=== PATIENT | male | born 1970 | race Two or more races ===

== ENCOUNTER → 2017-05-05 | Outpatient (REF) | payer OTHER | LOC: M SFHCPLAZ 10:28 | PROVIDERS: ATTEND Nurse Practitioner Adult Health | DX: Z00.00 Encounter for general adult medical examination without abnormal findings (principal) ==

== ENCOUNTER 2019-04-05 12:37 | Observation (INO) | payer OTHER, SELFPAY ==
[~2019-04-05] VITALS: Ht 170.2 cm; Wt 82.4 kg
[2019-04-05] MEDS ORDERED: LORazepam 2 MG/ML VIAL (J2060) IV STA (12:57)
[2019-04-05] MEDS ORDERED: LORazepam 2 MG/ML VIAL (J2060) As Ordered ONE (12:58)
[2019-04-05] MEDS ORDERED: levETIRAcetam INJection 1,000 MG in D5W 100 ML IV ONE (13:15)
[2019-04-05] MEDS ORDERED: NS 1,000 ML IV ONE (13:45)
--- NOTE | 2019-04-05 13:53 | REP ---
CT brain: 04/05/2019. Indication: Seizure. Comparison: None. Technique: Unenhanced axial CT images of the brain were obtained from skull base to vertex. Findings: There is no acute intracranial hemorrhage, acute cortical infarction, mass effect, hydrocephalus or significant fluid within the visualized paranasal sinuses/mastoid air cells. Mild diffuse volume loss is present. Impression: No acute intracranial process. Electronically Signed by Camilo Toure DO 04/05/2019 01:45 P
[2019-04-05 14:10] LABS: BASO # 0.1 10^3/uL (0.0-0.2); BASO % 0.5 % (0.0-1.0); EOS # 0.4 10^3/uL (0.0-0.5); EOS % 2.4 % (0.0-3.0); HEMATOCRIT 55.1 % (42.0-52.0); HEMOGLOBIN 16.8 g/dl (13.5-17.5); LYMPH # 3.2 10^3/uL (1.5-5.0); LYMPH % 18.5 % (24.0-44.0); MEAN CORPUSCULAR HEMOGLOBIN 30.5 pg (27.0-33.0); MEAN CORPUSCULAR HGB CONC 30.5 g/dl (32.0-36.5); MONO # 1.2 10^3/uL (0.0-0.8); MONO % 6.7 % (0.0-5.0); NEUTROPHILS % 70.4 % (36.0-66.0); PLATELET COUNT, AUTOMATED 308 10^3/uL (150-450); RED BLOOD COUNT 5.51 10^6/uL (4.30-6.10)
[2019-04-05 14:30] LABS: ALBUMIN 4.4 GM/DL (3.2-5.2); ALT/SGPT 34 U/L (12-78); BILIRUBIN,DIRECT < 0.1 MG/DL (0.0-0.2); BILIRUBIN,TOTAL 0.4 MG/DL (0.2-1.0); BLOOD UREA NITROGEN 12 MG/DL (7-18); CALCIUM LEVEL 9.4 MG/DL (8.5-10.1); CARBON DIOXIDE LEVEL 8 MEQ/L (21-32); CHLORIDE LEVEL 104 MEQ/L (98-107); CK-MB VALUE MASS 10.5 NG/ML (<3.6); CPK CREATINE PHOSPHOKINASE 174 U/L (39-308); CREATININE FOR GFR 1.71 MG/DL (0.70-1.30); GLOMERULAR FILTRATION RATE 45.5 (>60); GLUCOSE, FASTING 255 MG/DL (70-100); MB/CK RELATIVE INDEX 6.03 (< OR =4); POTASSIUM SERUM 3.5 MEQ/L (3.5-5.1); SODIUM LEVEL 145 MEQ/L (136-145); TROPONIN I < 0.02 NG/ML (< 0.10)
[2019-04-05] MEDS ORDERED: cloNIDine HCL 0.1 MG/24 HR PATCH TOP ONE (15:15)
[2019-04-05 15:44] VITALS: BP 152/95
[2019-04-05] MEDS ORDERED: LORazepam 2 MG/ML VIAL (J2060) IV PRN (16:30)
[2019-04-05] MEDS ORDERED: ACETAMINOPHEN TAB 650MG DOSE (2X325MG) PO PRN (16:30)
--- NOTE | 2019-04-05 16:51 | HPE ---
DATE OF ADMISSION: 04/05/2019 CHIEF COMPLAINT: Recurrent seizures. HISTORY: Houston Touer is a 48-year-old with seizure disorder. He is noncompliant with both his medications and his neurology followup. He used to be followed by [facility]; apparently last appointment was a few years ago. He also has a history of hypertension and stopped taking his antihypertensives as well. He has been " Medicaid" with daily marijuana use. He presented with several seizures. Patient is postictal, answers some questions when I saw him, but generally history was lacking on content and specifics. He says the last time he had a seizure was a few months ago. PAST MEDICAL HISTORY: Seizure disorder. Hypertension. Polysubstance abuse. Alcohol abuse. SOCIAL HISTORY: He is unemployed. 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 Smokes cigarettes and marijuana daily. Says he has not had any alcohol in 3 or 4 days. MEDICATIONS: Currently none. Apparently he was on lisinopril and Keppra, unknown doses in outpatient. ALLERGIES: Unknown. REVIEW OF SYSTEMS: Poorly obtainable. He denies any headache, recent head injury, chest pain or shortness of breath. PHYSICAL EXAMINATION: Blood pressure was 140/104 at one point, currently 152/95, pulse of 100, respiratory rate 18, 98% oxygen (O2) saturation on 2 liters. General Appearance: He is lying in bed. He is postictal. He answers questions, answers are vague and lack content. Normocephalic, atraumatic. Pupils equal, round, and reactive to light. Pharynx benign. Neck: No masses, neck supple. Lungs: Clear. Heart: Regular without murmur. Abdomen: Soft, nontender, no masses. No peripheral edema. Normal strength in the arms and legs, moves them equally, increased tone in the upper and lower extremities when testing reflexes, coordination could not be tested nor could gait. LABORATORY: White count 17,000, hemoglobin 16.8, platelets 308. Sodium 143, potassium 3.5, BUN 12, creatinine 1.7, glucose 250, TSH 6.9. CT of the brain: No acute findings. IMPRESSION: 1. Repeated seizures. These responded to IV Keppra 1 gram and IV Ativan 1 mg. He stopped seizing. He is answering questions. I will admit him to a monitored bed, consult neurology. Dr. Tang is aware of the admission, spoke with the emergency room. Will restart his Keppra, which apparently he was taking 1000 mg twice a day previously with established noncompliance. 2. Hypertension. Blood pressure is elevated. They put a clonidine TTS-1 patch on him in the emergency room, which we will continue for now. 3. Hyperglycemia. I do not know whether he received D50 out in the field. Followup fasting blood sugar in the morning. I ordered a hemoglobin A1c. 4. Elevated creatinine. I am not sure if he has chronic kidney disease or if this is just a manifestation of reduced recent oral intake. Repeat renal function has been ordered for the morning. 5. Slightly elevated thyroid-stimulating hormone (TSH). TSH would be an unreliable indicator of hypothyroidism in a patient with an active neurologic condition. Would recommend a repeat TSH and free T4 as an outpatient. Would advise against starting thyroid replacement therapy on the basis of this minimally elevated TSH.
[2019-04-05 17:06] LABS: AMPHETAMINES LEVEL URINE NEGATIVE (NEGATIVE); BARBITURATES URINE NEGATIVE (NEGATIVE); BENZODIAZEPINES URINE NEGATIVE (NEGATIVE); CANNABINOIDS URINE POSITIVE (NEGATIVE); COCAINE METABOLITE URINE NEGATIVE (NEGATIVE); METHADONE URINE NEGATIVE (NEGATIVE); OPIATES URINE NEGATIVE (NEGATIVE); PHENCYCLIDINE URINE NEGATIVE (NEGATIVE)
[2019-04-05 18:50] VITALS: BP 125/68
[2019-04-05 20:00] VITALS: BP 141/76
[2019-04-05 20:14] LABS: HEMOGLOBIN A1c 5.4 %
[2019-04-05] MEDS: levETIRAcetam 250MG TABLET (KEPPRA) PO SCH (20:47)
[2019-04-05] MEDS ORDERED: ENOXAPARIN 40 MG/0.4 ML SYRINGE (J1650) SC SCH (21:00)
[2019-04-05] MEDS ORDERED: SLF 3 ML SYR IV PRN (21:00)
[2019-04-05] MEDS: SLF 3 ML SYR IV SCH (22:00)
[2019-04-06] VITALS: BP 132/70
[2019-04-06 04:00] VITALS: BP_SYST 124; BP_DIAS 70; BP_DIAS 71
[2019-04-06] MEDS: SLF 3 ML SYR IV SCH ×2 (05:50→14:00)
[2019-04-06 06:16] LABS: BASO % 0.2 % (0.0-1.0); EOS # 0.1 10^3/uL (0.0-0.5); EOS % 0.5 % (0.0-3.0); HEMATOCRIT 47.4 % (42.0-52.0); HEMOGLOBIN 15.3 g/dl (13.5-17.5); LYMPH # 1.3 10^3/uL (1.5-5.0); LYMPH % 9.5 % (24.0-44.0); MEAN CORPUSCULAR HGB CONC 32.3 g/dl (32.0-36.5); MEAN CORPUSCULAR VOLUME 92.9 fl (80.0-96.0); MONO # 0.9 10^3/uL (0.0-0.8); MONO % 6.8 % (0.0-5.0); NEUTROPHILS # 11.2 10^3/uL (1.5-8.5); NEUTROPHILS % 82.6 % (36.0-66.0); PLATELET COUNT, AUTOMATED 250 10^3/uL (150-450); WHITE BLOOD COUNT 13.6 10^3/uL (4.0-10.0)
--- NOTE | 2019-04-06 06:17 | ECGEPIP ---
[facility] - ED Test Date: 2019-04-05 Pat Name: KEYON TORRES Department: Room: - Gender: Male Chicken Picker: : [phone] Requested By: Seth Poe Order Number: [id number] Reading MD: Seth Montanez Measurements Intervals [place] Rate: 120 P: 77 CO: 151 QRS: 69 QRSD: 121 T: 57 QT: 321 QTc: 455 Interpretive Statements SINUS TACHYCARDIA RIGHT BUNDLE BRANCH BLOCK POSSIBLE LEFT VENTRICULAR HYPERTROPHY MODERATE ST DEPRESSION NO PRIORS FOR COMPARISON Electronically Signed on 04-06-2019 6:17:20 EST by Seth Montanez
[2019-04-06 06:37] LABS: BLOOD UREA NITROGEN 16 MG/DL (7-18); CALCIUM LEVEL 8.8 MG/DL (8.5-10.1); CARBON DIOXIDE LEVEL 25 MEQ/L (21-32); CHLORIDE LEVEL 110 MEQ/L (98-107); CREATININE FOR GFR 0.91 MG/DL (0.70-1.30); GLOMERULAR FILTRATION RATE > 60.0 (>60); GLUCOSE, FASTING 105 MG/DL (70-100); POTASSIUM SERUM 2.9 MEQ/L (3.5-5.1); SODIUM LEVEL 143 MEQ/L (136-145)
[2019-04-06 07:37] VITALS: BP 173/93
[2019-04-06] MEDS ORDERED: POTASSIUM CHLORIDE 10 MEQ SR TABLET PO ONE (08:30)
--- NOTE | 2019-04-06 08:52 | CR ---
DATE OF CONSULTATION: 04/06/2019 REQUESTING PROVIDER: Dr. Darren JULES REASON FOR CONSULTATION: Breakthrough seizure. The patient is a 48-year-old male with past medical history significant for intractable seizure disorder. The patient has been worked up at [facility] including video EEG monitoring to confirm multiple episodes of seizure activity. The patient was last seen in the neurology clinic in 2017. At that time he was on Keppra 500 mg twice a day. The patient was asked to increase Keppra and consider starting zonisamide. The patient chose to discontinue all antiepileptic medications. He states he only wants to self medicate with marijuana and with diet modification. The patient at the present time is doing well and is no longer postictal. He is status post two back to back generalized tonic clonic seizures for which he received Ativan and Keppra which resolved his seizure activity. There was concern for status epilepticus so the patient was admitted to the hospital.. The patient is quite adamant at this time he does not want any workup nor does he want any treatment for his seizures. He understands he is on Keppra twice a day for the management of this particular seizure disorder. He is receiving 1000 mg twice a day. He does have Ativan as needed for seizures. He states he does not want to make any appointments with outpatient neurology at this time. He states he is rene if he has about four to five seizures a year. He thinks he is under more stress dealing with his brother who is an alcoholic. He states that this is likely the cause as to why he is having extra seizures this past week. His family reported that he is having numerous seizures within the week. The patient was on antihypertensive medications, but he has stopped taking those as well. The patient did have a nonfocal neurological exam. REVIEW OF SYSTEMS: 14-point review of systems obtained and is negative except as per HPI. PAST MEDICAL HISTORY: Intractable seizure disorder. Hypertension. Polysubstance abuse. Alcohol abuse. SOCIAL HISTORY: The patient smokes cigarettes and marijuana daily. He drinks alcohol on occasion. CURRENT MEDICATIONS: None at home at this time. Home medications included Keppra and lisinopril in the past. ALLERGIES: NO KNOWN DRUG ALLERGIES. FAMILY HISTORY: Noncontributory. PHYSICAL EXAMINATION: Blood pressure is 159/96, pulse rate is 101, respiratory rate is 18, temperature is 97.8 degrees Fahrenheit, oxygenation is 94% on room air. Current height is 70 inches. Current weight is 86 kg. The patient is awake, alert, oriented to person, place and time. The patient is raising his voice at times, he is quite belligerent, often using profanities. The patient was not cooperative during neurological exam and assessment and history taking. Pupils are equal, round, react to light. Extraocular movements are intact without nystagmus. Sensation V1, V2, V3 is intact. No facial asymmetry activation. Palate elevates symmetrically. Tongue is midline. There appears to be some blood on his tongue. The patient denies tongue bite however. There is no weakness of sternocleidomastoids bilaterally. There is no pronator drift. Strength is 5/5 including bilateral deltoids, biceps, triceps, handgrip, iliopsoas, quadriceps, anterior tibialis. Sensory is intact to light touch in all four extremities. Coordination there is no gross ataxia or dysmetria. Gait deferred. Deep tendon reflexes are 2s throughout. Babinski signs are absent. ASSESSMENT: 48-year-old male with intractable seizure disorder, noncompliant on previous antiepileptic drugs, reporting side effects to Keppra in the past. The patient was recommended to meet with [facility] epilepsy clinic to discuss possible implantation of a vagal nerve stimulator for suspected complex partial seizure with secondary generalization and generalized seizures. The patient declined at this time. The patient offered continuation of antiepileptic medications and followup care for managing seizure disorder. The patient states he does not want to be seen by neurology or any physicians at this time. He does not wish to pursue any form of medication pharmacological treatment for his seizures. He wants to self medicate with marijuana and modify his diet only. He understands there is a risk for developing recurring [id number] seizures developing status epilepticus which can lead to . Despite these several concerns, the patient is quite adamant that he does not want any further neurological care. The patient is fully aware that if he changes his mind, he will have to set up arrangements to be seen at the epilepsy clinic and [facility] in [place] or the epilepsy clinic in [place], [place] at [facility]. Continue seizure precautions. Continue Keppra 1000 mg p.o. b.i.d. with Ativan p.r.n. Seizure precautions including no driving, operating heavy machinery, climbing ladders, working from heights, etc. are discussed with the patient.
[2019-04-06] MEDS: levETIRAcetam 250MG TABLET (KEPPRA) PO SCH (09:00)
[2019-04-06] MEDS: KCL 10MEQ/100ML SWI (KRUN) 10 MEQ in IV 1 EA IV SCH ×4 (09:00→11:15)
[2019-04-06] MEDS ORDERED: amLODIPine 10 MG TAB PO ONE (13:15)
--- NOTE | 2019-04-06 16:24 | IPNPDOC ---
Date Seen The patient was seen on 04/06/19. Progress Note SUBJECTIVE: 48-year-old male with past medical history of seizure disorder, hypertension, alcohol abuse, drug use, was admitted for seizures. He is noncompliant with his medications, noncompliant and combative with the staff today. He reports that he wishes to go home, but he does not have a ride. He is refusing all of his medication, including his seizure medication and electrolytes. He was advised that he can have another seizure, severe and life- threatening arrhythmias from hypokalemia and hypomagnesemia. Patient understands and is okay with the risks stated above, wishes to be left alone. His only complaint at this time is that he cannot go home, no medical complaints. PHYSICAL EXAMINATION: VITAL SIGNS: Please see below. GENERAL: No distress HEENT: moist mucous membranes NECK: Supple CARDIOVASCULAR EXAMINATION: S1, S2, no murmurs RESPIRATORY EXAMINATION: Clear to auscultation, no wheezing ABDOMINAL EXAMINATION: Soft, nontender, nondistended, positive bowel sounds EXTREMITIES: Range of motion intact SKIN: No rash NEUROLOGICAL EXAMINATION: Alert and oriented 3, no focal deficits PSYCHIATRIC EXAMINATION: Agitated LABORATORY DATA, IMAGING STUDIES, MICROBIOLOGY: Please see below. DVT prophylaxis ordered?: Yes ASSESSMENT AND PLAN: 48-year-old male with past medical history of seizure disorder, hypertension, alcohol abuse and drug use admitted for seizures, noncompliant with treatment. PROBLEMS: 1. Seizure disorder: Keppra ordered, patient noncompliant, neurology eval pending, continue seizure precautions. 2. Electrolyte abnormalities:. Potassium and magnesium supplementation ordered, patient noncompliant and refusing, patient understands and agrees with the risks of medication noncompliant, including life-threatening arrhythmias. 3. Hypertension:. Added Norvasc to his regular regimen, patient refused. DVT prophylaxis: Lovenox. GI prophylaxis: Not needed VS, I&O, 24H, Fishbone Vital Signs/I&O Vital Signs Date Time Temp Pulse Resp B/P (MAP) Pulse Ox O2 Delivery O2 Flow Rate FiO2 04/06/19 07:37 97.6 92 18 173/93 (119) 94 Room Air I&O- Last 24 Hours up to 6 AM 04/06/19 06:00 Intake Total 1100 ml Balance 1100 ml Laboratory Data 24H LABS Laboratory Tests 2 04/06/19 05:45: Immature Granulocyte % (Auto) 0.4, Neutrophils (%) (Auto) 82.6H, Lymphocytes (%) (Auto) 9.5L, Monocytes (%) (Auto) 6.8H, Eosinophils (%) (Auto) 0.5, Basophils (%) (Auto) 0.2, Neutrophils # (Auto) 11.2H, Lymphocytes # (Auto) 1.3L, Monocytes # (Auto) 0.9H, Eosinophils # (Auto) 0.1, Basophils # (Auto) 0.0, Nucleated Red Blood Cells % (auto) 0.0, Anion Gap 8, Glomerular Filtration Rate > 60.0, Calcium Level 8.8 CBC/BMP Laboratory Tests 04/06/19 05:45 GELACIO RODRIGUEZ MD Apr 06, 2019 16:24
[2019-04-07] MEDS ORDERED: amLODIPine 10 MG TAB PO SCH (09:00)
[2019-04-12] MEDS ORDERED: cloNIDine HCL 0.1 MG/24 HR PATCH TOP SCH (09:00)
--- NOTE | 2019-04-12 10:41 | REP ---
Portable chest, single AP view with the patient sitting, 01:10 p.m.: There are no comparisons. There is a focal lesion in the region of rib overlap involving the anterior end of left fifth rib and posterior arch left eighth rib. This could represent a rib or lung lesion. Follow-up PA and lateral views of the chest are recommended if the patient's clinical condition will permit. Lung de la cruz otherwise clear. Cardiac size is normal. The chester, mediastinum, skeletal structures are unremarkable. Impression: No acute cardiopulmonary findings. Lesion of uncertain significance on the left as described. Routine PA and lateral views are recommended if the patient's clinical condition will permit. Electronically Signed by Alfonso Carroll MD 04/05/2019 01:19 P
== END 2019-04-06 18:45 | disposition left against medical advice (07) ==
LOC: M ED 12:37 → M ED INP 12:38 → M PCU 18:45
PROVIDERS: ADMIT Family Medicine; ATTEND Internal Medicine
DX: G40.919 Epilepsy, unspecified, intractable, without status epilepticus (principal); I10 Essential (primary) hypertension; E87.8 Other disorders of electrolyte and fluid balance, not elsewhere classified; R73.9 Hyperglycemia, unspecified; R00.0 Tachycardia, unspecified; R94.6 Abnormal results of thyroid function studies; F19.10 Other psychoactive substance abuse, uncomplicated; F10.10 Alcohol abuse, uncomplicated; F17.210 Nicotine dependence, cigarettes, uncomplicated; Z91.14 Patient's other noncompliance with medication regimen
CPT/HCPCS: 36415; 70450; 71045; 80048; 80076; 80307; 82550; 82553; 83036; 84443; 84484; 85025; 93005; 93041; 94760; 96374; 96375; 99285; J1953; J2060

== ENCOUNTER → 2019-09-20 | Outpatient (REF) | LOC: M LAB 13:00 ==